=== PATIENT | female | born 1955 ===

== ENCOUNTER 2023-12-17 05:06 | Day surgery (SDC) | payer OTHER ==
[2023-12-11 12:44] LABS: INR 0.98; PARTIAL THROMBOPLASTIN TIME 28.5 SECONDS (22.0-34.0); PROTHROMBIN TIME 10.3 SECONDS (9.0-11.5)
[~2023-12-17] VITALS: Ht 154.9 cm; Wt 76.7 kg
[~2023-12-17 05:06] MED LIST: COZAAR100 MG PO; IRBESARTAN-HCT1 EACH PO; METAFOLBIC TAB1 EACH PO; NEURONTIN300 MG PO; OSTERA TABLET1 EACH PO; PERCOCET 5-3251 EACH PO; POLY119PG PO; TOPROL XL25 M1 PO
[2023-12-17] MEDS ORDERED: CEFAZOLIN SODIUM 1,000 MG VIAL ONE (07:35)
[2023-12-17] MEDS ORDERED: POVIDONE-IODINE 118 ML BOTT TOP ONE (07:35)
[2023-12-17] MEDS ORDERED: CEFAZOLIN SODIUM 1,000 MG VIAL IV ONE (08:45)
[2023-12-17] MEDS ORDERED: SUGAMMADEX SODIUM 200 MG/2 ML VIAL IV ONE ×2 (09:09→09:30)
[2023-12-17] MEDS ORDERED: ENALAPRILAT DIHYDRATE 1.25 MG/ML VIAL IV ONE (10:38)
== END 2023-12-17 12:10 | disposition home or self-care (01) ==
LOC: CIR.AMB 05:06 → SURH 10:45 → EDSTATUS 10:45 → CIR.AMB 12:10
PROVIDERS: ATTEND Obstetrics & Gynecology
DX: N85.00 Endometrial hyperplasia, unspecified (principal); I10 Essential (primary) hypertension; I49.9 Cardiac arrhythmia, unspecified; M19.90 Unspecified osteoarthritis, unspecified site; C18.9 Malignant neoplasm of colon, unspecified